=== PATIENT | female | born 2000 | race Hispanic/Latino ===

== ENCOUNTER 2025-05-12 09:39 | Emergency (ER) | payer SELFPAY ==
[2025-05-12 09:50] VITALS: BP 104/69
[2025-05-12 10:24] LABS: Urine Character Clear (Clear)
[2025-05-12 10:34] VITALS: BP 105/73
[2025-05-12 10:36] VITALS: BP 105/73; BMI 20.8
[2025-05-12 10:40] LABS: Urine Red Blood Cell 0-2 /HPF (0-2); Urine Squamous Cell 0-2 /LPF (Few); Urine White Cell 0-2 /HPF (0-5)
--- NOTE | 2025-05-12 10:59 | ED.GENMED ---
History of Present Illness
<Meredith Austin DO, Resident - Last Filed: 05/12/25 16:00>
General
Chief Complaint: Urinary Symptoms
Source: patient
Exam Limitations: none
Time Seen by Provider: 05/12/25 10:32
Nursing documentation reviewed up to this point in time: agreed with
History of Present Illness
History of Present Illness:
Patient is a 25-year-old female with no pertinent past medical history presenting with lower abdominal pain and urinary symptoms. Patient speaks Frisian and visit was done with a virtual upper marker present. Patient notes that she started to have
lower abdominal pain as well as pain and burning with urination on Wednesday of this week. Patient started to notice the lower back pain on Wednesday. Patient states she had headache felt like she was feverish had 1 episode of diarrhea and is now
also endorsing some very mild chest pain. Patient tried taking Azo with no relief. Patient has been taking a vaginal probiotic from physician's choice for the last 2 to 3 months.
Review of Systems
<Meredith Austin DO, Resident - Last Filed: 05/12/25 16:00>
Review of Systems
Allergies reviewed?: Yes
All Other Systems: ROS reviewed and negative except as documented in HPI and ROS
Constitutional: Reports fever
EENT: Reports no symptoms
Respiratory: Reports no symptoms
Cardiac: Reports chest pain
ABD/GI: Reports pain (Suprapubic abdominal pain, right greater than left lower abdominal pain)
: Reports dysuria and flank pain
Musculoskeletal: Reports no symptoms
Skin: Reports no symptoms
Neurological: Reports no symptoms
Endocrine: Reports no symptoms
Hematologic/Lymphatic: Reports no symptoms
Psychiatric: Reports no symptoms
Phy Exam
<Meredith Austin DO, Resident - Last Filed: 05/12/25 16:00>
General Physical Exam
General Presentation: no apparent distress
General age: appears stated age
General Skin: warm and dry
General Habitus: normal
General Mental: alert
Cardiovascular Exam
Cardiovascular Exam: regular rate/rhythm
Heart Sounds: normal
Pulmonary Exam
Pulmonary Exam: lungs clear and no respiratory distress
Gastrointestinal Exam
Gastrointestinal Exam: normal bowel sounds and tender (Mild suprapubic tenderness, right upper quadrant tenderness, right lower quadrant tenderness)
Neurological Exam
Neurological Exam: alert and oriented x3
Skin Exam
Skin Exam: normal color and warm/dry
Psychiatric Exam
Psychiatric Exam: normal mood/affect
Course
<Meredith Austin DO, Resident - Last Filed: 05/12/25 16:00>
Orders/Labs/Results
Orders:
Orders
05/12/25 10:01
HCG, Urine Qualitative Screen Urgent
Date Specimen was Collected: 05/12/25
Time Specimen was Collected: 09:54
Comment: ADD ON
Urinalysis Reflex To Culture Urgent
Date Specimen was Collected: 05/12/25
Time Specimen was Collected: 09:54
Urine Microscopic Reflex Cult Urgent
Urine Culture Urgent
ROXANNA Source: U
Specimen Description:
Date Specimen was Collected: 05/12/25
Time Specimen was Collected: 09:54
05/12/25 10:39
Add On- LAB Urgent
Tests Added?: Urine HCG Qualitative
05/12/25 10:59
CMP [Comprehensive Metabolic Panel] Urgent
Complete Blood Count/With Diff Urgent
Lipase Urgent
05/12/25 11:27
CT Abd/pelvis W Iv Cont Urgent
Comment:
Reason For Exam: supra pubic tenderness, RLQ tenderness
05/12/25 11:33
Add On- LAB Stat
Tests Added?: lipase
05/12/25 14:59
Cefdinir [Omnicef] 300 mg PO NOW STA
Abnormal Lab Results
05/12/25 05/12/25
10:01 10:59
Absolute Lymphs (auto) 1.1 L 10^3/uL
(1.2-3.4)
Absolute Monos (auto) 0.7 H 10^3/uL
(0.1-0.6)
Lymphocytes % 15.0 L %
(20.5-51.1)
Ur Occult Blood Reflex 1+ A
(Negative)
Urine Nitrite (Reflex) Positive A
(Negative)
Urine Bilirubin 2+ A
(Negative)
Urine Urobilinogen 3+ A
(Neg - 1+)
Leukocyte Esterase Rfl 1+ A
(Negative)
Urine Bacteria (Reflex) Few A
(Negative)
Urine Albumin (Reflex) 1+ A
(Neg - Trace)
05/12/25 10:59
05/12/25 10:59
Vital Signs
Initial and Last Documented VS:
Initial Vital Signs
Temp Pulse Resp BP Pulse Ox
98 F 100 16 104/69 98
05/12/25 09:50 05/12/25 09:50 05/12/25 09:50 05/12/25 09:50 05/12/25 09:50
Last Documented Vital Signs
Temp Pulse Resp BP Pulse Ox
98.2 F 82 20 115/86 99
05/12/25 14:15 05/12/25 14:15 05/12/25 14:15 05/12/25 14:15 05/12/25 14:15
<Khoi Polk MD - Last Filed: 05/12/25 11:33>
Orders/Labs/Results
Orders:
Orders
05/12/25 10:01
HCG, Urine Qualitative Screen Urgent
Date Specimen was Collected: 05/12/25
Time Specimen was Collected: 09:54
Comment: ADD ON
Urinalysis Reflex To Culture Urgent
Date Specimen was Collected: 05/12/25
Time Specimen was Collected: 09:54
Urine Microscopic Reflex Cult Urgent
Urine Culture Urgent
ROXANNA Source: U
Specimen Description:
Date Specimen was Collected: 05/12/25
Time Specimen was Collected: 09:54
05/12/25 10:39
Add On- LAB Urgent
Tests Added?: Urine HCG Qualitative
05/12/25 10:59
CMP [Comprehensive Metabolic Panel] Urgent
Complete Blood Count/With Diff Urgent
Lipase Urgent
05/12/25 11:27
CT Abd/pelvis W Iv Cont Urgent
Comment:
Reason For Exam: supra pubic tenderness, RLQ tenderness
05/12/25 11:33
Add On- LAB Stat
Tests Added?: lipase
05/12/25 14:59
Cefdinir [Omnicef] 300 mg PO NOW STA
Abnormal Lab Results
05/12/25 05/12/25
10:01 10:59
Absolute Lymphs (auto) 1.1 L 10^3/uL
(1.2-3.4)
Absolute Monos (auto) 0.7 H 10^3/uL
(0.1-0.6)
Lymphocytes % 15.0 L %
(20.5-51.1)
Ur Occult Blood Reflex 1+ A
(Negative)
Urine Nitrite (Reflex) Positive A
(Negative)
Urine Bilirubin 2+ A
(Negative)
Urine Urobilinogen 3+ A
(Neg - 1+)
Leukocyte Esterase Rfl 1+ A
(Negative)
Urine Bacteria (Reflex) Few A
(Negative)
Urine Albumin (Reflex) 1+ A
(Neg - Trace)
05/12/25 10:59
05/12/25 10:59
Vital Signs
Initial and Last Documented VS:
Initial Vital Signs
Temp Pulse Resp BP Pulse Ox
98 F 100 16 104/69 98
05/12/25 09:50 05/12/25 09:50 05/12/25 09:50 05/12/25 09:50 05/12/25 09:50
Last Documented Vital Signs
Temp Pulse Resp BP Pulse Ox
98.2 F 82 20 115/86 99
05/12/25 14:15 05/12/25 14:15 05/12/25 14:15 05/12/25 14:15 05/12/25 14:15
<Meredith Austin DO, Resident - Last Filed: 05/12/25 16:00>
MDM/Problems Addressed
Differential Diagnosis Includes:
Urinary tract infection, appendicitis, pyelonephritis, ovarian cyst, ovarian torsion
MDM/Problems Addressed:
Urinalysis at first positive for nitrite and leukocyte esterase, but unimpressive on reflex microanalysis. Patient still complaining of lower abdominal pain more so in the right lower quadrant than left. Got CT AP to assess for possible
appendicitis. CTAP showed no acute inflammatory process within the abdomen or pelvis. Appendix is normal. No renal ureteral or urinary bladder calculi. No obstructive uropathy. There is moderately prominent distention of the urinary bladder
without apparent wall thickening or soft tissue stranding.
Will discharge patient with antibiotics given initial positive urinalysis and no other source of abdominal pain. Patient encouraged to follow-up with primary care or return to ED if symptoms do not improve.
<Meredith Austin DO, Resident - Last Filed: 05/12/25 16:00>
*Pulse Oximetry
SaO2: 100
Oxygen Mode of Delivery: Room air
Patient hypoxic: no
*Critical Care Note
Total Time (30-74mins, 75-104mins- exclusive of procedures): Not Applicable
ED Attending Note
<Meredith Austin DO, Resident - Last Filed: 05/12/25 16:00>
-
Portions of this chart may have been created with voice recognition software.� Occasional wrong word or��sound alike� substitutions may have occurred due to the inherent limitations of voice recognition software.
<Khoi Polk MD - Last Filed: 05/12/25 11:33>
ED Attending Note
Patient seen and examined by attending physician: Yes
I performed a history and physical exam of patient and discussed management with resident, I reviewed resident's note and agree with documented findings and plan of care.: Yes
ED Attending Note:
25-year-old female complaining of urinary symptoms and lower abdominal pain for 5 days. No vomiting. Some mild urinary symptoms. No fever.
On exam patient is nontoxic in no distress. Warm and dry. Perfusing well. Lungs are clear and equal. No CVA tenderness. Heart regular rate and rhythm no murmur. Abdomen is soft. Very minimal epigastric tenderness. Mostly lower abdominal
tenderness diffusely but greatest in the right lower quadrant. No rebound or guarding no mass or hernia.
Differential would include UTI/early pyelo-/appendicitis/ovarian issue. Highly doubt gallbladder issue. On repeat exam she has no significant right upper quadrant tenderness. CT scan pending. If all other testing is negative would consider
coverage for UTI. Urinalysis somewhat in disagreement with the micro. Urinalysis is positive nitrite positive leukocyte however micro was unremarkable.
Discharge Plan
Departure
Patient Disposition: Home (Routine Discharge)
Date of Disposition: 05/12/25
Time of Disposition: 15:07
Patient with high blood pressure during this ER visit?: No
Discharge Problem:
UTI (urinary tract infection)
Instructions: Urinary Tract Infection, Adult (DC), Abdominal Pain
Prescriptions:
New
cefdinir 300 mg capsule
300 mg PO BID Qty: 9 0RF
Rx Instructions:
Please take one tablet 2 times daily for 5 days.
Referrals:
[facility] [Outside]
UNKNOWN - PT NOT,INTERVIEWE [Family Provider]
Activity Restrictions/Additional Instructions:
Antibiotic prescription sent to pharmacy. Please take 1 capsule of cefdinir 300 mg twice daily. If symptoms do not improve please follow-up with your primary care physician. Including the [facility] residency clinic referral information here if you
would like to follow-up here for primary care. If symptoms worsen please return to the ER
Interventions
Interventions:
*Risk Screen - Suicide Last Done: 05/12/25 09:50
*General Assessment Last Done: 05/12/25 10:36
*Neglect/Abuse Screening Last Done: 05/12/25 09:50
*ED- Fall Risk Assessment Last Done: 05/12/25 10:36
*ED COVID-19 Vaccine History Last Done: 05/12/25 10:36
ED-Female Genitourinary Assessment Last Done: 05/12/25 10:36
Discharge Date and Time
Print Language: ROMANIAN
[2025-05-12 11:00] VITALS: BP 101/54
[2025-05-12 11:09] LABS: Hematocrit 40.2 % (37.0-47.0); Hemoglobin 14.1 g/dL (12.0-16.0); Mean Corp Hgb Conc. 35.1 g/dL (33.0-37.0); Mean Corpuscular Volume 85.9 fL (81.0-99.0); Nucleated Red Blood Cells % 0 %; Platelet Count 235 10^3/uL (130-400); Red Cell Dist. Width 12.1 % (11.5-14.5)
[2025-05-12 11:26] LABS: ALT (SGPT) 16 U/L (0-35); AST (SGOT) 23 U/L (14-36); Albumin 4.9 g/dl (3.5-5.0); Alkaline Phosphatase 52 U/L (38-126); Blood Urea Nitrogen 12 mg/dl (7-17); Calcium 9.4 mg/dl (8.4-10.2); Carbon Dioxide 26 mmol/L (22-30); Chloride 102 mmol/L (98-107); Estimated Creatinine Clearance > 125 ml/min; Glucose 86 mg/dl (70-99); Potassium 3.8 mmol/L (3.5-5.1); Sodium 137 mmol/L (135-145); Total Protein 8.1 g/dl (6.3-8.2); eGFR > 60.00
[2025-05-12 12:00] VITALS: BP 110/64
[2025-05-12 12:31] LABS: Lipase 181 U/L (23-300)
[2025-05-12 13:10] LABS: HCG, Urine Qualitative Screen Negative
[2025-05-12 14:15] VITALS: BP 115/86
== END 2025-05-12 16:03 | disposition home or self-care (01) ==
LOC: EMR 09:39
PROVIDERS: EMERGENCY PHYSICIAN Emergency Medicine
DX: N39.0 Urinary tract infection, site not specified (principal)
CPT/HCPCS: 99284; 74177; 80053; 81003; 81015; 81025; 83690; 85025; 87086; Q9967